=== PATIENT | male | born 1955 | race Caucasian/White ===

== ENCOUNTER → 2018-08-13 | Outpatient (CLI) | payer OTHER | LOC: FIMAGING 15:17 → EDSTATUS 15:18 | PROVIDERS: ATTEND Internal Medicine | DX: S62.92XA Unspecified fracture of left hand, initial encounter for closed fracture (principal); X58.XXXA Exposure to other specified factors, initial encounter; Y92.9 Unspecified place or not applicable; Y93.9 Activity, unspecified; Y99.9 Unspecified external cause status ==